=== PATIENT | male | born 1930 | race Caucasian/White ===

== ENCOUNTER 2017-03-16 13:49 | Emergency (ER) | payer MEDICARE ==
[~2017-03-16 13:49] MED LIST: ALPRAZOLAM0.5 MG PO; BUMETANIDE1 MG PO; CORDARONE 200M200 MG PO; COREG 25MG TAB25 MG PO; COUMADIN2 MG PO; FLOMAX 0.4 MG0.4 MG PO; IMDUR ER TAB 3030 MG PO; KEFLEX CAP 500500 MG PO; LORTAB 5-325 M1 EACH PO; METOLAZONE2.5 MG PO; NEOMYCIN-POLYMY10 M1 AS; NITRO-DUR 0.4 MG1 EA TD; PRAVASTATIN SOD40 MG PO; PROTONIX40 MG PO; PROZAC20 MG PO; RESTORIL15 MG PO; SPIRONOLACTONE25 MG PO; SYNTHROID75 MCG PO; THEOPHYLLINE400 MG PO; ZYLOPRIM 100 M100 MG PO
[2017-03-16 15:12] LABS: HEMOGLOBIN 7.4 gm/dl (14.0-17.5); RED BLOOD COUNT 2.76 M/UL (4.20-5.50); WHITE BLOOD COUNT 4.9 K/UL (4.5-11.0)
== END 2017-03-17 00:15 | disposition home or self-care (01) ==
LOC: ER1 13:49
PROVIDERS: Emergency Medicine
DX: D64.9 Anemia, unspecified (principal); N19 Unspecified kidney failure; R79.1 Abnormal coagulation profile; I25.2 Old myocardial infarction; I48.91 Unspecified atrial fibrillation; I11.0 Hypertensive heart disease with heart failure; I50.9 Heart failure, unspecified; Z95.1 Presence of aortocoronary bypass graft; Z95.810 Presence of automatic (implantable) cardiac defibrillator; Z79.01 Long term (current) use of anticoagulants; R11.0 Nausea
CPT/HCPCS: 36415; 36430; 71010; 80053; 81001; 82272; 83690; 84484; 85025; 85045; 85610; 86850; 86900; 86901; 86920; 93005; 99284; P9016

== ENCOUNTER 2017-04-16 21:00 | Inpatient (IN) | payer MEDICARE ==
[~2017-04-16] VITALS: Ht 172.7 cm; Wt 79.4 kg
[2017-04-16 22:00] LABS: RED BLOOD COUNT 2.6 M/UL (4.20-5.50); WHITE BLOOD COUNT 6.7 K/UL (4.5-11.0)
[2017-04-16 22:06] LABS: HEMOGLOBIN 6.8 gm/dl (14.0-17.5)
[2017-04-17 07:50] LABS: RED BLOOD COUNT 2.98 M/UL (4.20-5.50)
[2017-04-17] MEDS ORDERED: COUMADIN 2.5MG2.5 MG PO (10:07)
[2017-04-17] MEDS ORDERED: PROZAC10 MG PO (10:15)
[2017-04-17] MEDS ORDERED: PROZAC20 MG PO (10:33)
[2017-04-17 18:17] LABS: HEMOGLOBIN 8.8 gm/dl (14.0-17.5)
[2017-04-18 05:48] LABS: HEMOGLOBIN 8.1 gm/dl (14.0-17.5); RED BLOOD COUNT 3.08 M/UL (4.20-5.50); WHITE BLOOD COUNT 6.4 K/UL (4.5-11.0)
[2017-04-19 06:23] LABS: HEMOGLOBIN 7.9 gm/dl (14.0-17.5); RED BLOOD COUNT 3.01 M/UL (4.20-5.50); WHITE BLOOD COUNT 6.2 K/UL (4.5-11.0)
[2017-04-19 14:05] LABS: HEMOGLOBIN 8.3 gm/dl (14.0-17.5)
[2017-04-19] MEDS ORDERED: FEROSUL325 MG PO (17:26)
[2017-04-19] MEDS ORDERED: COUMADIN 1MG TAB1 MG PO (17:27)
== END 2017-04-19 17:54 | disposition home or self-care (01) | DRG 812 ==
LOC: ER1 21:00 → ZEROF 04-17 → M/S 04-17 10:32
PROVIDERS: Emergency Medicine; Internal Medicine Infectious Disease; ADMIT Internal Medicine
PROC: 30253N1 (ICD-10-PCS; principal; 2017-04-17)
DX: D50.0 Iron deficiency anemia secondary to blood loss (chronic) (principal); N17.9 Acute kidney failure, unspecified; I50.22 Chronic systolic (congestive) heart failure; I13.0 Hypertensive heart and chronic kidney disease with heart failure and stage 1 through stage 4 chronic kidney disease, or unspecified chronic kidney disease; J96.11 Chronic respiratory failure with hypoxia; N18.9 Chronic kidney disease, unspecified; E78.5 Hyperlipidemia, unspecified; I25.10 Atherosclerotic heart disease of native coronary artery without angina pectoris; I48.2 Chronic atrial fibrillation; G47.00 Insomnia, unspecified; Z88.5 Allergy status to narcotic agent; E11.21 Type 2 diabetes mellitus with diabetic nephropathy; E11.22 Type 2 diabetes mellitus with diabetic chronic kidney disease; R53.81 Other malaise; I25.2 Old myocardial infarction; Z95.1 Presence of aortocoronary bypass graft; Z86.79 Personal history of other diseases of the circulatory system; Z87.81 Personal history of (healed) traumatic fracture; Z79.891 Long term (current) use of opiate analgesic; Z79.01 Long term (current) use of anticoagulants; Z79.899 Other long term (current) drug therapy; Z99.81 Dependence on supplemental oxygen
CPT/HCPCS: 36415; 36430; 36600; 70450; 71010; 80048; 80053; 81001; 82272; 82550; 82553; 82607; 82728; 82746; 82803; 83036; 83540; 83550; 83735; 83874; 83880; 84100; 84443; 84484; 85014; 85018; 85025; 85027; 85610; 86850; 86900; 86901; 86920; 93005; 94664; 94760; 96374; 97116; 99285; J1756; J1940; J7050; P9016